=== PATIENT | male | born 1965 | race Native Hawaiian/Other Pacific Islander ===

== ENCOUNTER 2016-11-02 12:56 | Outpatient (CLI) | payer OTHER ==
[2016-11-02 13:43] LABS: PLATELET COUNT 226 K/uL (142-355)
== END 2016-11-02 19:28 | disposition home or self-care (01) ==
LOC: LABW 12:56
PROVIDERS: Internal Medicine
DX: R53.83 Other fatigue (principal); Z12.5 Encounter for screening for malignant neoplasm of prostate
CPT/HCPCS: 36415; 82550; 82553; 84154; 84402; 84403; 84439; 84443; 85027; 85651; 86644; 86645; 86663; 86664; 86665

== ENCOUNTER 2017-08-05 08:21 | Observation (INO) | payer OTHER ==
[2017-08-05] VITALS (7 sets, daily range): BP systolic 118–151; BP diastolic 80–94; TEMP 98–99.1; Ht 180.3 cm; Wt 107.2 kg
[~2017-08-05] VITALS: Ht 180.3 cm; Wt 107.2 kg
[2017-08-05] MEDS ORDERED: LABETALOL100 MG OR (08:39)
[2017-08-05] MEDS ORDERED: ZANTAC300 MG PO (08:40)
[2017-08-05] MEDS ORDERED: PRAVACHOL20 MG PO (08:41)
[2017-08-05 09:22] LABS: PLATELET COUNT 186 K/uL (142-355)
[2017-08-05 09:29] LABS: POTASSIUM 3.8 mmol/L (3.6-5.2)
[2017-08-05 10:12] LABS: PARTIAL THROMBOPLASTIN TIME 28.6 SECONDS (24.5-33.6)
[2017-08-06] VITALS: BP 106/64; TEMP 97.6
--- NOTE | 2017-08-06 02:44 | NUR ---
PT REQUESTS THROAT LOSENGES. FAMILY IS AT BEDSIDE. NO S/S OF DISTRESS NOTED AT THIS TIME. WILL CONTINUE TO MONITOR.
[2017-08-06 04:00] VITALS: BP 111/66; TEMP 97.9
[2017-08-06 05:53] LABS: PLATELET COUNT 185 K/uL (142-355)
[2017-08-06 06:26] LABS: POTASSIUM 4.2 mmol/L (3.6-5.2); SODIUM 137 mmol/L (136-145)
[2017-08-06 08:00] VITALS: BP 125/72; TEMP 97.6
[2017-08-06] MEDS ORDERED: MEDROL DOSEPAK4 MG PO (11:58)
--- NOTE | 2017-08-06 12:07 | NUR ---
DC INSTRUCTIONS GIVEN TO PT AT THIS TIME. IV DC'D WITH CANNULA INTACT AND SITE CARE PROVIDED. NAD NOTED. PT INSTRUCTED TO MAKE FOLLOW UP APPT WITH DR GALEANO IN 5-7 DAYS. PT VERBALIZED UNDERSTANDING.
== END 2017-08-06 12:30 | disposition home or self-care (01) ==
LOC: ED 08:21 → MED/SURG 11:00
DX: R06.02 Shortness of breath (principal); R53.1 Weakness; R05 Cough
CPT/HCPCS: 36415; 80053; 84484; 85027; 85610; 85730; 87040; 87077; 87185; 87186; 87205; 87804; 93005; 94640; 94664; 94760; 96360; 96361; 96365; 96366; 96375; 99220; 99284; G0378; J0696; J1885; J2405; J2920; J2930; Q9963

== ENCOUNTER 2020-03-15 09:08 | Outpatient (CLI) | payer OTHER ==
[~2020-03-15 09:08] MED LIST: LABETALOL100 MG OR; MEDROL DOSEPAK4 MG PO; PRAVACHOL20 MG PO; ZANTAC300 MG PO
[2020-03-15 09:40] LABS: POTASSIUM 4.1 mmol/L (3.6-5.2)
[2020-03-15 09:58] LABS: PLATELET COUNT 204 K/uL (142-355)
== END 2020-03-15 19:30 | disposition home or self-care (01) ==
LOC: LABW 09:08
PROVIDERS: Internal Medicine
DX: I10 Essential (primary) hypertension (principal); E78.5 Hyperlipidemia, unspecified; F41.9 Anxiety disorder, unspecified
CPT/HCPCS: 36415; 80053; 80061; 81000; 84439; 84443; 85027

== ENCOUNTER → 2020-09-18 15:47 | Outpatient (CLI) | payer OTHER | END | disposition home or self-care (01) | LOC: RAD 15:47 | PROVIDERS: ATTEND Internal Medicine | DX: M25.512 Pain in left shoulder (principal) ==

== ENCOUNTER 2020-09-27 14:28 | Outpatient (CLI) | payer OTHER | END 2020-09-27 19:40 | disposition home or self-care (01) | LOC: MRI 14:28 | PROVIDERS: ATTEND Physician Assistant | DX: M25.512 Pain in left shoulder (principal) ==

== ENCOUNTER 2020-10-09 09:54 | Day surgery (SDC) | payer OTHER ==
[2020-10-02 13:48] LABS: PLATELET COUNT 210 K/uL (142-355)
[2020-10-02 14:01] LABS: POTASSIUM 4.2 mmol/L (3.6-5.2)
[~2020-10-09] VITALS: Ht 30.5 cm; Wt 0.5 kg
== END 2020-10-09 12:55 | disposition home or self-care (01) ==
LOC: OR 09:54
PROVIDERS: ATTEND Internal Medicine Gastroenterology
PROC: 0DBL8ZZ Excision of Transverse Colon, Via Natural or Artificial Opening Endoscopic (ICD-10-PCS; principal; 2020-10-09)
PROC: 0DBN8ZZ Excision of Sigmoid Colon, Via Natural or Artificial Opening Endoscopic (ICD-10-PCS; 2020-10-09)
DX: D12.3 Benign neoplasm of transverse colon (principal); D17.79 Benign lipomatous neoplasm of other sites; K57.30 Diverticulosis of large intestine without perforation or abscess without bleeding; K64.8 Other hemorrhoids; Z12.11 Encounter for screening for malignant neoplasm of colon; Z20.828 Contact with and (suspected) exposure to other viral communicable diseases
CPT/HCPCS: 80053; 85027; 87635; J2704; U0003

== ENCOUNTER 2021-02-21 12:04 | Outpatient (CLI) | payer OTHER ==
[2021-02-21 14:35] LABS: PLATELET COUNT 196 K/uL (142-355)
[2021-02-21 14:59] LABS: SODIUM 144 mmol/L (136-145)
== END 2021-02-21 22:52 | disposition home or self-care (01) ==
LOC: LAB 12:04 → RAD 12:04
PROVIDERS: ATTEND Internal Medicine
DX: R09.1 Pleurisy (principal)
CPT/HCPCS: 80053; 82550; 83880; 84484; 85027; 85379

== ENCOUNTER 2021-12-13 10:09 | Outpatient (CLI) | payer OTHER ==
[2021-12-13 11:03] LABS: POTASSIUM 3.8 mmol/L (3.6-5.2)
[2021-12-13 11:05] LABS: PLATELET COUNT 221 K/uL (142-355)
== END 2021-12-13 19:41 | disposition home or self-care (01) ==
LOC: LABW 10:09
PROVIDERS: ATTEND Internal Medicine
DX: E78.5 Hyperlipidemia, unspecified (principal); I10 Essential (primary) hypertension
CPT/HCPCS: 36415; 80053; 80061; 81000; 84439; 84443; 85027